=== PATIENT | male | born 1990 | race Caucasian/White ===

== ENCOUNTER 2018-06-08 01:45 | Emergency (ER) | payer BC ==
[~2018-06-08] VITALS: Ht 172.7 cm; Wt 74.8 kg
[2018-06-08] MEDS ORDERED: NKM (01:59)
[2018-06-08 02:15] VITALS: BP 130/76
--- NOTE | 2018-06-08 05:14 | Emergency Room Report ---
History of Present Illness General Chief Complaint: Eye Problems Source: Patient Present Illness HPI Patient is a 28-year-old female presented after increased bilateral eye foreign body sensation. Patient recently fallen asleep with contact lenses in both eyes. 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 He denies recent eye discharge. He reports having the sensation of contact lense present in upper eyelid bilaterally. He denies any visual changes. He had not been able to use contact lenses subsequently Allergies: Coded Allergies: No Known Allergies (Unverified , 06/08/18) Patient History Past Medical History: see triage record Nursing Documentation-[facility] Past Medical History: No Stated History Review of Systems All Other Systems: negative except mentioned in HPI Physical Exam Vital Signs Date Time Temp Pulse Resp B/P (MAP) Pulse Ox O2 Delivery O2 Flow Rate FiO2 06/08/18 01:57 98.3 75 16 130/76 98 Room Air 98.2 General Appearance: well appearing, no apparent distress, alert, GCS 15 Head: normocephalic, atraumatic Eyes: bilateral eye PERRL, bilateral eye other - no foreign body visualized ENT: hearing grossly normal, normal voice Neck: full range of motion, supple Respiratory: no respiratory distress, speaking full sentences Cardiovascular #1: normal inspection Gastrointestinal: normal inspection Musculoskeletal: normal inspection, back normal Neurologic: normal inspection, alert, oriented x3, responsive, inventory checker III-XII nml as tested, normal gait Psychiatric: mood/affect normal Skin: no rash Medical Decision Making Diagnostic Impression: Primary Impression: Contact lens stuck ER Course Patient presented for foreign body sensation to both eyes. Differential diagnosis included was not limited to foreign body, abrasion, conjunctivitis among others. Patient has a benign exam and does not appear to require any further imaging or laboratory testing at this time. Although I'm not able to visualize foreign body the patient may have contact lens present in the area not able to visualize. The patient is advised to follow-up with ophthalmology for further evaluation and possible removal. Last Vital Signs Date Time Temp Pulse Resp B/P (MAP) Pulse Ox O2 Delivery O2 Flow Rate FiO2 06/08/18 02:52 98.2 75 16 130/76 98 Room Air 98.2 Status: unchanged Disposition: HOME, SELF-CARE Condition: Stable Referrals: NOT CHOSEN IPA/,REFERRING (PCP) Fahad Cardozo MD Additional Instructions: Follow up with ophthalmology tomorrow Nicholas Zavala MD Jun 08, 2018 05:14
== END 2018-06-08 02:50 | disposition home or self-care (01) ==
LOC: EMR 02:32
DX: T15.92XA Foreign body on external eye, part unspecified, left eye, initial encounter (principal); T15.91XA Foreign body on external eye, part unspecified, right eye, initial encounter; S00.252A Superficial foreign body of left eyelid and periocular area, initial encounter; S00.251A Superficial foreign body of right eyelid and periocular area, initial encounter; X58.XXXA Exposure to other specified factors, initial encounter; Y92.9 Unspecified place or not applicable
CPT/HCPCS: 99282